=== PATIENT | female | born 1955 | race Caucasian/White ===

== ENCOUNTER 2019-10-03 14:25 | Outpatient (CLI) | payer MEDICARE, SELFPAY ==
--- NOTE | ~2019-10-03 | XR_ITS ---
EXAMINATION: XR chest 2V EXAM DATE: 10/03/2019 14:49 INDICATION: Shortness of breath, URI, cough. TECHNIQUE: Frontal and lateral projections of the chest obtained and reviewed. Comparison is made to prior examination from 04/20/2019. FINDINGS: There is right upper lobe nodule. The lungs are otherwise clear. There are no pleural eff usions. The cardiomediastinal silhouette is within normal limits. There is no pneumothorax suspecte d. The bones and soft tissues are unremarkable. IMPRESSION: No acute cardiopulmonary findings. Reviewed, dictated and finalized at location B. OR PRODUCT DEVELOPMENT SCIENTIST
[2019-10-03 14:41] LABS: Hematocrit 40.1 % (35.0-49.0); Hemoglobin 12.7 g/dL (12.0-15.0); Mean Corpuscular HGB Conc 31.7 g/dL (32.0-36.0); Mean Corpuscular Hemoglobin 27.6 pg (27.0-31.0); Mean Corpuscular Volume 87.2 fL (78.0-102.0); Mean Platelet Volume 9.4 fl (9.2-11.8); Platelet Count Result 410 K/mm3 (150-420); Red Cell Distribution Width 15.2 % (11.6-14.4); White Blood Count 13.6 K/mm3 (4.8-10.8)
[2019-10-03 15:23] LABS: Anion Gap 13.9 mmol/L (7-16); Blood Urea Nitrogen 17 mg/dL (7-18); Calcium 9.3 mg/dL (8.5-10.1); Carbon Dioxide 29 mmol/L (21-32); Chloride 101 mmol/L (98-108); Estimated Glomerular Filt Rate 54; Glucose 110 mg/dL (70-99); Osmolality Calculated 290 mOsm/kg (285-295); Potassium 4.9 mmol/L (3.5-5.1); Sodium 139 mmol/L (136-145)
== END 2019-10-03 14:26 | disposition home or self-care (01) ==
PROVIDERS: PCP Family Medicine; Visit Provider Family Medicine
DX: J06.9 Acute upper respiratory infection, unspecified (principal)
CPT/HCPCS: 36415; 71046; 80048; 85027

== ENCOUNTER 2020-06-13 09:30 | Outpatient (RCR) | payer MEDICARE, SELFPAY ==
[2020-06-13 09:42] LABS: Basophils Absolute Auto 0.06 K/mm3 (0.00-0.10); Basophils Percent Auto 0.9 % (0.0-1.0); Eosinophils Absolute Auto 0.18 K/mm3 (0.02-0.50); Eosinophils Percent Auto 2.6 % (1.0-6.0); Hematocrit 40.9 % (35.0-49.0); Hemoglobin 12.7 g/dL (12.0-15.0); Immature Granulocyte Absolute 0.02 K/mm3 (0.00-0.00); Immature Granulocyte Percent A 0.3 % (0.0-0.0); Lymphocytes Absolute Auto 1.78 K/mm3 (1.10-4.50); Lymphocytes Percent Auto 25.6 % (18.0-42.0); Mean Corpuscular HGB Conc 31.1 g/dL (32.0-36.0); Mean Corpuscular Hemoglobin 28.1 pg (27.0-31.0); Mean Corpuscular Volume 90.5 fL (78.0-102.0); Mean Platelet Volume 10.3 fl (9.2-11.8); Monocytes Percent Auto 7.2 % (2.0-11.0); Neutrophils Absolute Auto 4.4 K/mm3 (1.7-7.2); Neutrophils Percent Auto 63.4 % (50.0-70.0); Platelet Count Result 315 K/mm3 (150-420); Red Blood Count 4.52 M/mm3 (4.20-5.40); Red Cell Distribution Width 15.7 % (11.6-14.4); White Blood Count 6.9 K/mm3 (4.8-10.8)
== END 2020-09-11 23:59 | disposition home or self-care (01) ==
LOC: CHSLAB 09:30
PROVIDERS: PCP Family Medicine
DX: F25.9 Schizoaffective disorder, unspecified (principal); F41.9 Anxiety disorder, unspecified; Z79.899 Other long term (current) drug therapy
CPT/HCPCS: 36415; 85025

== ENCOUNTER 2020-07-11 10:38 | Outpatient (CLI) | payer MEDICARE, SELFPAY ==
[2020-07-11 10:56] LABS: Basophils Absolute Auto 0.05 K/mm3 (0.00-0.10); Basophils Percent Auto 0.6 % (0.0-1.0); Eosinophils Absolute Auto 0.17 K/mm3 (0.02-0.50); Eosinophils Percent Auto 2.1 % (1.0-6.0); Hemoglobin 12.5 g/dL (12.0-15.0); Immature Granulocyte Absolute 0.02 K/mm3 (0.00-0.00); Immature Granulocyte Percent A 0.3 % (0.0-0.0); Lymphocytes Absolute Auto 1.91 K/mm3 (1.10-4.50); Lymphocytes Percent Auto 24.1 % (18.0-42.0); Mean Corpuscular HGB Conc 31.3 g/dL (32.0-36.0); Mean Corpuscular Hemoglobin 28.2 pg (27.0-31.0); Mean Corpuscular Volume 90.1 fL (78.0-102.0); Mean Platelet Volume 10.6 fl (9.2-11.8); Monocytes Absolute Auto 0.53 K/mm3 (0.10-0.90); Monocytes Percent Auto 6.7 % (2.0-11.0); Neutrophils Absolute Auto 5.3 K/mm3 (1.7-7.2); Neutrophils Percent Auto 66.2 % (50.0-70.0); Platelet Count Result 307 K/mm3 (150-420); Red Blood Count 4.44 M/mm3 (4.20-5.40); Red Cell Distribution Width 15.4 % (11.6-14.4); White Blood Count 7.9 K/mm3 (4.8-10.8)
== END 2020-07-11 10:39 | disposition home or self-care (01) ==
LOC: CHSLAB 10:41
PROVIDERS: PCP Family Medicine
DX: F25.9 Schizoaffective disorder, unspecified (principal); F41.9 Anxiety disorder, unspecified; Z79.899 Other long term (current) drug therapy
CPT/HCPCS: 36415; 85025

== ENCOUNTER 2021-03-11 07:48 | Outpatient (CLI) | payer MEDICARE, SELFPAY ==
[2021-03-11 08:00] LABS: Basophils Absolute Auto 0.05 K/mm3 (0.00-0.10); Basophils Percent Auto 0.7 % (0.0-1.0); Eosinophils Absolute Auto 0.13 K/mm3 (0.02-0.50); Eosinophils Percent Auto 1.9 % (1.0-6.0); Hematocrit 46.4 % (35.0-49.0); Hemoglobin 14.3 g/dL (12.0-15.0); Immature Granulocyte Absolute 0.04 K/mm3 (0.00-0.00); Immature Granulocyte Percent A 0.6 % (0.0-0.0); Lymphocytes Absolute Auto 2.27 K/mm3 (1.10-4.50); Lymphocytes Percent Auto 33.1 % (18.0-42.0); Mean Corpuscular HGB Conc 30.8 g/dL (32.0-36.0); Mean Corpuscular Hemoglobin 28.3 pg (27.0-31.0); Mean Corpuscular Volume 91.9 fL (78.0-102.0); Mean Platelet Volume 10.5 fl (9.2-11.8); Monocytes Absolute Auto 0.36 K/mm3 (0.10-0.90); Monocytes Percent Auto 5.3 % (2.0-11.0); Neutrophils Percent Auto 58.4 % (50.0-70.0); Platelet Count Result 327 K/mm3 (150-420); Red Blood Count 5.05 M/mm3 (4.20-5.40); Red Cell Distribution Width 15.5 % (11.6-14.4); White Blood Count 6.9 K/mm3 (4.8-10.8)
== END 2021-03-11 07:49 | disposition home or self-care (01) ==
PROVIDERS: PCP Family Medicine
DX: F25.9 Schizoaffective disorder, unspecified (principal); F41.9 Anxiety disorder, unspecified; Z79.899 Other long term (current) drug therapy
CPT/HCPCS: 36415; 85025

== ENCOUNTER 2021-04-09 09:35 | Outpatient (CLI) | payer MEDICARE, SELFPAY ==
[2021-04-09 09:52] LABS: Basophils Absolute Auto 0.06 K/mm3 (0.00-0.10); Basophils Percent Auto 0.7 % (0.0-1.0); Eosinophils Absolute Auto 0.15 K/mm3 (0.02-0.50); Eosinophils Percent Auto 1.8 % (1.0-6.0); Hematocrit 43.2 % (35.0-49.0); Hemoglobin 13.6 g/dL (12.0-15.0); Immature Granulocyte Absolute 0.03 K/mm3 (0.00-0.00); Immature Granulocyte Percent A 0.4 % (0.0-0.0); Lymphocytes Absolute Auto 2.12 K/mm3 (1.10-4.50); Lymphocytes Percent Auto 25.8 % (18.0-42.0); Mean Corpuscular HGB Conc 31.5 g/dL (32.0-36.0); Mean Corpuscular Hemoglobin 28.9 pg (27.0-31.0); Mean Corpuscular Volume 91.9 fL (78.0-102.0); Mean Platelet Volume 10.3 fl (9.2-11.8); Monocytes Absolute Auto 0.54 K/mm3 (0.10-0.90); Monocytes Percent Auto 6.6 % (2.0-11.0); Neutrophils Absolute Auto 5.3 K/mm3 (1.7-7.2); Neutrophils Percent Auto 64.7 % (50.0-70.0); Platelet Count Result 279 K/mm3 (150-420); Red Cell Distribution Width 15.7 % (11.6-14.4); White Blood Count 8.2 K/mm3 (4.8-10.8)
== END 2021-04-09 09:36 | disposition home or self-care (01) ==
LOC: CHSLAB 09:38
PROVIDERS: PCP Family Medicine
DX: F25.9 Schizoaffective disorder, unspecified (principal); Z79.899 Other long term (current) drug therapy
CPT/HCPCS: 36415; 85025

== ENCOUNTER 2021-05-07 10:02 | Outpatient (RCR) | payer MEDICARE, SELFPAY ==
[2021-02-12 08:23] LABS: Basophils Absolute Auto 0.04 K/mm3 (0.00-0.10); Basophils Percent Auto 0.7 % (0.0-1.0); Eosinophils Absolute Auto 0.12 K/mm3 (0.02-0.50); Hematocrit 44.4 % (35.0-49.0); Hemoglobin 13.9 g/dL (12.0-15.0); Immature Granulocyte Absolute 0.01 K/mm3 (0.00-0.00); Immature Granulocyte Percent A 0.2 % (0.0-0.0); Lymphocytes Absolute Auto 1.98 K/mm3 (1.10-4.50); Lymphocytes Percent Auto 33.6 % (18.0-42.0); Mean Corpuscular HGB Conc 31.3 g/dL (32.0-36.0); Mean Corpuscular Hemoglobin 28.3 pg (27.0-31.0); Mean Corpuscular Volume 90.2 fL (78.0-102.0); Mean Platelet Volume 11.1 fl (9.2-11.8); Monocytes Absolute Auto 0.31 K/mm3 (0.10-0.90); Monocytes Percent Auto 5.3 % (2.0-11.0); Neutrophils Absolute Auto 3.4 K/mm3 (1.7-7.2); Neutrophils Percent Auto 58.2 % (50.0-70.0); Platelet Count Result 309 K/mm3 (150-420); Red Blood Count 4.92 M/mm3 (4.20-5.40); Red Cell Distribution Width 15.7 % (11.6-14.4); White Blood Count 5.9 K/mm3 (4.8-10.8)
[2021-05-07 10:14] LABS: Basophils Absolute Auto 0.05 K/mm3 (0.00-0.10); Basophils Percent Auto 0.6 % (0.0-1.0); Eosinophils Absolute Auto 0.14 K/mm3 (0.02-0.50); Eosinophils Percent Auto 1.7 % (1.0-6.0); Hematocrit 44.4 % (35.0-49.0); Hemoglobin 14.1 g/dL (12.0-15.0); Immature Granulocyte Absolute 0.02 K/mm3 (0.00-0.00); Immature Granulocyte Percent A 0.2 % (0.0-0.0); Lymphocytes Absolute Auto 1.87 K/mm3 (1.10-4.50); Lymphocytes Percent Auto 23.1 % (18.0-42.0); Mean Corpuscular HGB Conc 31.8 g/dL (32.0-36.0); Mean Corpuscular Hemoglobin 29.1 pg (27.0-31.0); Mean Corpuscular Volume 91.7 fL (78.0-102.0); Mean Platelet Volume 10.8 fl (9.2-11.8); Monocytes Absolute Auto 0.43 K/mm3 (0.10-0.90); Monocytes Percent Auto 5.3 % (2.0-11.0); Neutrophils Absolute Auto 5.6 K/mm3 (1.7-7.2); Neutrophils Percent Auto 69.1 % (50.0-70.0); Platelet Count Result 279 K/mm3 (150-420); Red Blood Count 4.84 M/mm3 (4.20-5.40); Red Cell Distribution Width 15.7 % (11.6-14.4); White Blood Count 8.1 K/mm3 (4.8-10.8)
== END 2021-05-13 23:59 | disposition home or self-care (01) ==
LOC: CHSLAB 10:02
PROVIDERS: PCP Family Medicine
DX: F25.9 Schizoaffective disorder, unspecified (principal); F41.9 Anxiety disorder, unspecified; Z79.899 Other long term (current) drug therapy
CPT/HCPCS: 36415; 85025

== ENCOUNTER 2021-08-25 10:02 | Outpatient (RCR) | payer MEDICARE, SELFPAY ==
[2021-06-04 07:45] LABS: Basophils Absolute Auto 0.04 K/mm3 (0.00-0.10); Basophils Percent Auto 0.7 % (0.0-1.0); Eosinophils Absolute Auto 0.16 K/mm3 (0.02-0.50); Eosinophils Percent Auto 2.7 % (1.0-6.0); Hematocrit 44.5 % (35.0-49.0); Hemoglobin 14.1 g/dL (12.0-15.0); Immature Granulocyte Absolute 0.02 K/mm3 (0.00-0.00); Immature Granulocyte Percent A 0.3 % (0.0-0.0); Lymphocytes Percent Auto 37.2 % (18.0-42.0); Mean Corpuscular HGB Conc 31.7 g/dL (32.0-36.0); Mean Corpuscular Hemoglobin 29.2 pg (27.0-31.0); Mean Corpuscular Volume 92.1 fL (78.0-102.0); Mean Platelet Volume 10.8 fl (9.2-11.8); Monocytes Absolute Auto 0.39 K/mm3 (0.10-0.90); Monocytes Percent Auto 6.6 % (2.0-11.0); Neutrophils Absolute Auto 3.1 K/mm3 (1.7-7.2); Neutrophils Percent Auto 52.5 % (50.0-70.0); Platelet Count Result 279 K/mm3 (150-420); Red Blood Count 4.83 M/mm3 (4.20-5.40); Red Cell Distribution Width 15.5 % (11.6-14.4); White Blood Count 5.9 K/mm3 (4.8-10.8)
[2021-06-30 07:45] LABS: Basophils Absolute Auto 0.06 K/mm3 (0.00-0.10); Eosinophils Absolute Auto 0.15 K/mm3 (0.02-0.50); Eosinophils Percent Auto 2.5 % (1.0-6.0); Hematocrit 43.3 % (35.0-49.0); Hemoglobin 13.7 g/dL (12.0-15.0); Immature Granulocyte Absolute 0.01 K/mm3 (0.00-0.00); Immature Granulocyte Percent A 0.2 % (0.0-0.0); Lymphocytes Absolute Auto 2.38 K/mm3 (1.10-4.50); Lymphocytes Percent Auto 39.1 % (18.0-42.0); Mean Corpuscular HGB Conc 31.6 g/dL (32.0-36.0); Mean Corpuscular Volume 91.5 fL (78.0-102.0); Mean Platelet Volume 10.8 fl (9.2-11.8); Monocytes Absolute Auto 0.47 K/mm3 (0.10-0.90); Monocytes Percent Auto 7.7 % (2.0-11.0); Neutrophils Percent Auto 49.5 % (50.0-70.0); Platelet Count Result 287 K/mm3 (150-420); Red Blood Count 4.73 M/mm3 (4.20-5.40); Red Cell Distribution Width 15.6 % (11.6-14.4); White Blood Count 6.1 K/mm3 (4.8-10.8)
[2021-07-29 10:13] LABS: Basophils Absolute Auto 0.05 K/mm3 (0.00-0.10); Basophils Percent Auto 0.7 % (0.0-1.0); Eosinophils Absolute Auto 0.11 K/mm3 (0.02-0.50); Eosinophils Percent Auto 1.4 % (1.0-6.0); Hematocrit 44.2 % (35.0-49.0); Hemoglobin 14.1 g/dL (12.0-15.0); Immature Granulocyte Absolute 0.02 K/mm3 (0.00-0.00); Immature Granulocyte Percent A 0.3 % (0.0-0.0); Lymphocytes Percent Auto 23.4 % (18.0-42.0); Mean Corpuscular HGB Conc 31.9 g/dL (32.0-36.0); Mean Corpuscular Hemoglobin 29.4 pg (27.0-31.0); Mean Corpuscular Volume 92.1 fL (78.0-102.0); Mean Platelet Volume 10.6 fl (9.2-11.8); Monocytes Absolute Auto 0.43 K/mm3 (0.10-0.90); Monocytes Percent Auto 5.6 % (2.0-11.0); Neutrophils Absolute Auto 5.3 K/mm3 (1.7-7.2); Neutrophils Percent Auto 68.6 % (50.0-70.0); Platelet Count Result 310 K/mm3 (150-420); Red Cell Distribution Width 14.9 % (11.6-14.4); White Blood Count 7.7 K/mm3 (4.8-10.8)
[2021-08-25 10:19] LABS: Basophils Absolute Auto 0.06 K/mm3 (0.00-0.10); Basophils Percent Auto 0.7 % (0.0-1.0); Eosinophils Percent Auto 1.2 % (1.0-6.0); Hematocrit 44.6 % (35.0-49.0); Hemoglobin 13.9 g/dL (12.0-15.0); Immature Granulocyte Absolute 0.02 K/mm3 (0.00-0.00); Immature Granulocyte Percent A 0.2 % (0.0-0.0); Lymphocytes Absolute Auto 1.95 K/mm3 (1.10-4.50); Lymphocytes Percent Auto 22.9 % (18.0-42.0); Mean Corpuscular HGB Conc 31.2 g/dL (32.0-36.0); Mean Corpuscular Volume 92.9 fL (78.0-102.0); Mean Platelet Volume 10.7 fl (9.2-11.8); Monocytes Absolute Auto 0.43 K/mm3 (0.10-0.90); Platelet Count Result 291 K/mm3 (150-420); Red Cell Distribution Width 15.4 % (11.6-14.4); White Blood Count 8.5 K/mm3 (4.8-10.8)
== END 2021-09-02 23:59 | disposition home or self-care (01) ==
LOC: CHSLAB 10:02
PROVIDERS: PCP Family Medicine
DX: F25.9 Schizoaffective disorder, unspecified (principal); F41.9 Anxiety disorder, unspecified; Z79.899 Other long term (current) drug therapy
CPT/HCPCS: 36415; 85025

== ENCOUNTER 2021-12-16 07:19 | Outpatient (RCR) | payer MEDICARE, SELFPAY ==
[2021-09-21 14:48] LABS: Basophils Absolute Auto 0.05 K/mm3 (0.00-0.10); Basophils Percent Auto 0.6 % (0.0-1.0); Eosinophils Absolute Auto 0.12 K/mm3 (0.02-0.50); Eosinophils Percent Auto 1.5 % (1.0-6.0); Hematocrit 44.4 % (35.0-49.0); Hemoglobin 13.8 g/dL (12.0-15.0); Immature Granulocyte Absolute 0.04 K/mm3 (0.00-0.00); Immature Granulocyte Percent A 0.5 % (0.0-0.0); Lymphocytes Absolute Auto 2.25 K/mm3 (1.10-4.50); Lymphocytes Percent Auto 27.7 % (18.0-42.0); Mean Corpuscular HGB Conc 31.1 g/dL (32.0-36.0); Mean Corpuscular Hemoglobin 29.1 pg (27.0-31.0); Mean Corpuscular Volume 93.5 fL (78.0-102.0); Mean Platelet Volume 10.5 fl (9.2-11.8); Monocytes Absolute Auto 0.51 K/mm3 (0.10-0.90); Monocytes Percent Auto 6.3 % (2.0-11.0); Neutrophils Absolute Auto 5.2 K/mm3 (1.7-7.2); Neutrophils Percent Auto 63.4 % (50.0-70.0); Platelet Count Result 282 K/mm3 (150-420); Red Blood Count 4.75 M/mm3 (4.20-5.40); Red Cell Distribution Width 15.5 % (11.6-14.4); White Blood Count 8.1 K/mm3 (4.8-10.8)
[2021-10-20 08:09] LABS: Basophils Absolute Auto 0.05 K/mm3 (0.00-0.10); Basophils Percent Auto 0.7 % (0.0-1.0); Eosinophils Percent Auto 1.4 % (1.0-6.0); Hematocrit 44.8 % (35.0-49.0); Hemoglobin 13.7 g/dL (12.0-15.0); Immature Granulocyte Absolute 0.02 K/mm3 (0.00-0.00); Immature Granulocyte Percent A 0.3 % (0.0-0.0); Lymphocytes Absolute Auto 1.69 K/mm3 (1.10-4.50); Lymphocytes Percent Auto 23.4 % (18.0-42.0); Mean Corpuscular HGB Conc 30.6 g/dL (32.0-36.0); Mean Corpuscular Hemoglobin 28.8 pg (27.0-31.0); Mean Corpuscular Volume 94.3 fL (78.0-102.0); Mean Platelet Volume 10.5 fl (9.2-11.8); Monocytes Absolute Auto 0.34 K/mm3 (0.10-0.90); Monocytes Percent Auto 4.7 % (2.0-11.0); Neutrophils Percent Auto 69.5 % (50.0-70.0); Platelet Count Result 280 K/mm3 (150-420); Red Blood Count 4.75 M/mm3 (4.20-5.40); Red Cell Distribution Width 15.3 % (11.6-14.4); White Blood Count 7.2 K/mm3 (4.8-10.8)
[2021-11-18 07:51] LABS: Basophils Absolute Auto 0.05 K/mm3 (0.00-0.10); Basophils Percent Auto 0.8 % (0.0-1.0); Eosinophils Absolute Auto 0.15 K/mm3 (0.02-0.50); Eosinophils Percent Auto 2.3 % (1.0-6.0); Hematocrit 44.7 % (35.0-49.0); Hemoglobin 14.1 g/dL (12.0-15.0); Immature Granulocyte Absolute 0.02 K/mm3 (0.00-0.00); Immature Granulocyte Percent A 0.3 % (0.0-0.0); Lymphocytes Absolute Auto 2.29 K/mm3 (1.10-4.50); Lymphocytes Percent Auto 35.4 % (18.0-42.0); Mean Corpuscular HGB Conc 31.5 g/dL (32.0-36.0); Mean Corpuscular Hemoglobin 29.4 pg (27.0-31.0); Mean Corpuscular Volume 93.1 fL (78.0-102.0); Mean Platelet Volume 10.2 fl (9.2-11.8); Monocytes Absolute Auto 0.36 K/mm3 (0.10-0.90); Monocytes Percent Auto 5.6 % (2.0-11.0); Neutrophils Absolute Auto 3.6 K/mm3 (1.7-7.2); Neutrophils Percent Auto 55.6 % (50.0-70.0); Platelet Count Result 307 K/mm3 (150-420); Red Cell Distribution Width 15.3 % (11.6-14.4); White Blood Count 6.5 K/mm3 (4.8-10.8)
[2021-12-16 07:44] LABS: Basophils Absolute Auto 0.06 K/mm3 (0.00-0.10); Basophils Percent Auto 0.9 % (0.0-1.0); Eosinophils Absolute Auto 0.13 K/mm3 (0.02-0.50); Hematocrit 45.1 % (35.0-42.0); Hemoglobin 13.8 g/dL (11.7-13.8); Immature Granulocyte Absolute 0.02 K/mm3 (0.00-0.00); Immature Granulocyte Percent A 0.3 % (0.0-0.0); Lymphocytes Absolute Auto 2.08 K/mm3 (1.10-4.50); Lymphocytes Percent Auto 32.1 % (18.0-42.0); Mean Corpuscular HGB Conc 30.6 g/dL (32.0-36.0); Mean Corpuscular Hemoglobin 28.5 pg (27.0-31.0); Mean Corpuscular Volume 93.2 fL (78.0-102.0); Mean Platelet Volume 10.4 fl (9.2-11.8); Monocytes Absolute Auto 0.36 K/mm3 (0.10-0.90); Monocytes Percent Auto 5.6 % (2.0-11.0); Neutrophils Absolute Auto 3.8 K/mm3 (1.7-7.2); Neutrophils Percent Auto 59.1 % (50.0-70.0); Platelet Count Result 314 K/mm3 (150-420); Red Blood Count 4.84 M/mm3 (4.20-5.40); Red Cell Distribution Width 15.5 % (11.6-14.4); White Blood Count 6.5 K/mm3 (4.8-10.8)
== END 2021-12-20 23:59 | disposition home or self-care (01) ==
LOC: CHSLAB 07:19
PROVIDERS: PCP Family Medicine
DX: F25.9 Schizoaffective disorder, unspecified (principal); F41.9 Anxiety disorder, unspecified; Z79.899 Other long term (current) drug therapy
CPT/HCPCS: 36415; 85025

== ENCOUNTER 2022-03-17 06:59 | Outpatient (RCR) | payer MEDICARE, SELFPAY ==
[2022-01-13 07:38] LABS: Basophils Absolute Auto 0.06 K/mm3 (0.00-0.10); Basophils Percent Auto 0.8 % (0.0-1.0); Eosinophils Percent Auto 2.8 % (1.0-6.0); Hemoglobin 14.1 g/dL (11.7-13.8); Immature Granulocyte Absolute 0.01 K/mm3 (0.00-0.00); Immature Granulocyte Percent A 0.1 % (0.0-0.0); Lymphocytes Absolute Auto 2.35 K/mm3 (1.10-4.50); Lymphocytes Percent Auto 32.5 % (18.0-42.0); Mean Corpuscular HGB Conc 31.3 g/dL (32.0-36.0); Mean Corpuscular Volume 92.6 fL (78.0-102.0); Mean Platelet Volume 10.5 fl (9.2-11.8); Monocytes Absolute Auto 0.44 K/mm3 (0.10-0.90); Monocytes Percent Auto 6.1 % (2.0-11.0); Neutrophils Absolute Auto 4.2 K/mm3 (1.7-7.2); Neutrophils Percent Auto 57.7 % (50.0-70.0); Platelet Count Result 344 K/mm3 (150-420); Red Blood Count 4.86 M/mm3 (4.20-5.40); Red Cell Distribution Width 15.2 % (11.6-14.4); White Blood Count 7.2 K/mm3 (4.8-10.8)
[2022-02-10 07:31] LABS: Basophils Absolute Auto 0.04 K/mm3 (0.00-0.10); Basophils Percent Auto 0.6 % (0.0-1.0); Eosinophils Absolute Auto 0.14 K/mm3 (0.02-0.50); Eosinophils Percent Auto 2.1 % (1.0-6.0); Hematocrit 42.1 % (35.0-42.0); Hemoglobin 13.1 g/dL (11.7-13.8); Immature Granulocyte Absolute 0.01 K/mm3 (0.00-0.00); Immature Granulocyte Percent A 0.2 % (0.0-0.0); Lymphocytes Absolute Auto 2.07 K/mm3 (1.10-4.50); Lymphocytes Percent Auto 31.7 % (18.0-42.0); Mean Corpuscular HGB Conc 31.1 g/dL (32.0-36.0); Mean Corpuscular Volume 93.3 fL (78.0-102.0); Mean Platelet Volume 10.5 fl (9.2-11.8); Monocytes Absolute Auto 0.42 K/mm3 (0.10-0.90); Monocytes Percent Auto 6.4 % (2.0-11.0); Neutrophils Absolute Auto 3.9 K/mm3 (1.7-7.2); Platelet Count Result 302 K/mm3 (150-420); Red Blood Count 4.51 M/mm3 (4.20-5.40); Red Cell Distribution Width 15.5 % (11.6-14.4); White Blood Count 6.5 K/mm3 (4.8-10.8)
[2022-03-17 07:19] LABS: Basophils Absolute Auto 0.06 K/mm3 (0.00-0.10); Basophils Percent Auto 0.9 % (0.0-1.0); Eosinophils Absolute Auto 0.16 K/mm3 (0.02-0.50); Eosinophils Percent Auto 2.4 % (1.0-6.0); Hematocrit 42.4 % (35.0-42.0); Hemoglobin 13.3 g/dL (11.7-13.8); Immature Granulocyte Absolute 0.02 K/mm3 (0.00-0.00); Immature Granulocyte Percent A 0.3 % (0.0-0.0); Lymphocytes Absolute Auto 2.44 K/mm3 (1.10-4.50); Lymphocytes Percent Auto 36.5 % (18.0-42.0); Mean Corpuscular HGB Conc 31.4 g/dL (32.0-36.0); Mean Corpuscular Hemoglobin 29.2 pg (27.0-31.0); Mean Corpuscular Volume 93.2 fL (78.0-102.0); Mean Platelet Volume 10.3 fl (9.2-11.8); Monocytes Absolute Auto 0.45 K/mm3 (0.10-0.90); Monocytes Percent Auto 6.7 % (2.0-11.0); Neutrophils Absolute Auto 3.6 K/mm3 (1.7-7.2); Neutrophils Percent Auto 53.2 % (50.0-70.0); Platelet Count Result 279 K/mm3 (150-420); Red Blood Count 4.55 M/mm3 (4.20-5.40); Red Cell Distribution Width 15.5 % (11.6-14.4); White Blood Count 6.7 K/mm3 (4.8-10.8)
== END 2022-04-13 23:59 | disposition home or self-care (01) ==
LOC: CHSLAB 06:59
PROVIDERS: PCP Family Medicine
DX: F25.9 Schizoaffective disorder, unspecified (principal); F41.9 Anxiety disorder, unspecified; Z79.899 Other long term (current) drug therapy
CPT/HCPCS: 36415; 85025

== ENCOUNTER 2022-05-12 07:05 | Outpatient (CLI) | payer MEDICARE, SELFPAY ==
[2022-05-12 07:43] LABS: Basophils Absolute Auto 0.06 K/mm3 (0.00-0.10); Basophils Percent Auto 0.9 % (0.0-1.0); Eosinophils Absolute Auto 0.11 K/mm3 (0.02-0.50); Eosinophils Percent Auto 1.6 % (1.0-6.0); Hematocrit 42.8 % (35.0-42.0); Hemoglobin 13.1 g/dL (11.7-13.8); Immature Granulocyte Absolute 0.02 K/mm3 (0.00-0.00); Immature Granulocyte Percent A 0.3 % (0.0-0.0); Lymphocytes Absolute Auto 1.96 K/mm3 (1.10-4.50); Mean Corpuscular HGB Conc 30.6 g/dL (32.0-36.0); Mean Corpuscular Hemoglobin 28.2 pg (27.0-31.0); Mean Corpuscular Volume 92.2 fL (78.0-102.0); Mean Platelet Volume 10.5 fl (9.2-11.8); Monocytes Absolute Auto 0.49 K/mm3 (0.10-0.90); Monocytes Percent Auto 7.3 % (2.0-11.0); Neutrophils Absolute Auto 4.1 K/mm3 (1.7-7.2); Neutrophils Percent Auto 60.9 % (50.0-70.0); Platelet Count Result 326 K/mm3 (150-420); Red Blood Count 4.64 M/mm3 (4.20-5.40); White Blood Count 6.8 K/mm3 (4.8-10.8)
== END 2022-05-12 07:06 | disposition home or self-care (01) ==
LOC: CHSLAB 07:09
PROVIDERS: PCP Family Medicine
DX: F25.9 Schizoaffective disorder, unspecified (principal); F41.9 Anxiety disorder, unspecified; Z79.899 Other long term (current) drug therapy
CPT/HCPCS: 36415; 85025

== ENCOUNTER 2022-05-12 07:12 | Outpatient (RCR) | payer MEDICARE, SELFPAY ==
[2022-04-14 08:47] LABS: Basophils Absolute Auto 0.03 K/mm3 (0.00-0.10); Basophils Percent Auto 0.6 % (0.0-1.0); Eosinophils Absolute Auto 0.03 K/mm3 (0.02-0.50); Eosinophils Percent Auto 0.6 % (1.0-6.0); Hematocrit 40.8 % (35.0-42.0); Immature Granulocyte Absolute 0.01 K/mm3 (0.00-0.00); Immature Granulocyte Percent A 0.2 % (0.0-0.0); Lymphocytes Absolute Auto 1.16 K/mm3 (1.10-4.50); Lymphocytes Percent Auto 23.2 % (18.0-42.0); Mean Corpuscular HGB Conc 31.9 g/dL (32.0-36.0); Mean Corpuscular Hemoglobin 29.2 pg (27.0-31.0); Mean Corpuscular Volume 91.7 fL (78.0-102.0); Mean Platelet Volume 10.6 fl (9.2-11.8); Monocytes Absolute Auto 0.39 K/mm3 (0.10-0.90); Monocytes Percent Auto 7.8 % (2.0-11.0); Neutrophils Absolute Auto 3.4 K/mm3 (1.7-7.2); Neutrophils Percent Auto 67.6 % (50.0-70.0); Platelet Count Result 240 K/mm3 (150-420); Red Blood Count 4.45 M/mm3 (4.20-5.40)
== END 2022-05-12 07:36 | disposition other institution (70) ==
LOC: CHSLAB 07:12
PROVIDERS: PCP Family Medicine
DX: F25.9 Schizoaffective disorder, unspecified (principal); F41.9 Anxiety disorder, unspecified; Z79.899 Other long term (current) drug therapy
CPT/HCPCS: 36415; 85025

== ENCOUNTER 2022-08-30 08:32 | Outpatient (CLI) | payer MEDICARE, SELFPAY ==
--- NOTE | ~2022-08-30 | DEXA_ITS ---
Bone Density Report Name: DAE BERNSTEIN Age: 66 Sex: Female Ethnicity: White Date of : 1955 Indication: postmenopausal; screening for osteoporosis; height loss; inflammatory bowel disease; Referring Provider: Sumit Tocsano Study: Bone densitometry was performed. Exam Date: August 30, 2022 Accession number: [id number] Bone Density: Region BMD T-score Z-score Classification AP Spine(L2, L3, L4) 0.956 -1.1 0.8 Osteopenia Femoral Neck (Left) 0.685 -1.5 0.1 Osteopenia Total Hip (Left) 0.851 -0.7 0.5 Normal Femoral Neck (Right) 0.699 -1.4 0.2 Osteopenia Total Hip (Right) 0.860 -0.7 0.6 Normal Femoral Neck Mean 0.692 -1.4 0.1 Osteopenia Total Hip Mean 0.856 -0.7 0.6 Normal World Health Organization criteria for BMD impression classify patients as: Normal (T-score at or above -1.0), Osteopenia (T-score between -1.0 and -2.5), or Osteoporosis (T-score at or below -2.5). 10-year Fracture Risk(1): Major Osteoporotic Fracture 7.2% Hip Fracture 0.7% Reported Risk Factors: [place] (), Neck BMD=0.685, BMI=48.8 Input outside FRAX(R) limits. Adjusted to:Yloyia=266 kg (1) FRAX(R) Version 3.08. Fracture probability calculated for an untreated patient. Fracture probability may be lower if the patient has received treatment. Clinical Information Provided by Patient: Has the following medical conditions: Inflammatory bowel diseases Patient maximum height was 64 Menopause Age: 51 No regular weight bearing exercise Drinks caffeinated beverages Onset of menses at age 13 Number of children 0 Impression: The patient has low bone mass, based on the Left Femoral Neck T-score. Discussion: BONE DENSITY IS LOW AT ONE OR MORE SKELETAL SITES. This patient's lowest T-score is low at one or more skeletal sites. It meets the World Health Organization's (WHO) criteria for ?low bone mass? (T-score between -1.0 and -2.5). The patient's 10-year risk of fracture as calculated by FRAX is less than the threshold where pharmacological therapy is recommended by the National Osteoporosis Foundation (NOF). However, all treatment decisions require clinical judgment and consideration of individual patient factors, including patient preferences, comorbidities, previous drug use, risk factors not captured in the FRAX model (e.g., frailty, falls, vitamin D deficiency, increased bone turnover, interval significant decline in bone density) and possible under or overestimation of fracture risk by FRAX. The patient should follow a healthful lifestyle (good nutrition with adequate calcium and vitamin D, and appropriate weight-bearing exercise). Follow-Up: Consider repeating this study in 2 to 3 years to reassess this patient's status, or sooner if there is some new clinical indication.
--- NOTE | ~2022-08-30 | MM_ITS ---
EXAMINATION: MM screening michelle BI w job HISTORY: Screening mammogram TECHNIQUE: Craniocaudal and mediolateral oblique 3-D tomosynthesis images were obtained and synthetic 2-D images were generated. CAD analysis was submitted and interpreted. COMPARISON: 03/03/2018 bilateral diagnostic mammogram and complete bilateral breast ultrasound 02/09/2018 bilateral screening mammogram BREAST PARENCHYMAL COMPOSITION: There are scattered areas of fibroglandular density. FINDINGS: Stable nodular appearing fibroglandular stroma. There is no evidence of suspicious mass, ca lcification, or architectural distortion to suggest malignancy in either breast. There has been no victoria spicious interval change. IMPRESSION: 1. No mammographic evidence of malignancy. 2. Recommend routine screening mammography in one year. BI-RADS Category 2: Benign finding(s). Reviewed, dictated and finalized at location A. LINE ENGINE INSPECTOR
== END 2022-08-30 08:33 | disposition home or self-care (01) ==
LOC: CHSIMG 08:33
PROVIDERS: PCP Family Medicine; Visit Provider Family Medicine
DX: Z12.31 Encounter for screening mammogram for malignant neoplasm of breast (principal); Z78.0 Asymptomatic menopausal state; M85.89 Other specified disorders of bone density and structure, multiple sites
CPT/HCPCS: 77063; 77067; 77080

== ENCOUNTER 2022-09-02 06:56 | Outpatient (RCR) | payer MEDICARE, SELFPAY ==
[2022-06-09 13:39] LABS: Basophils Absolute Auto 0.05 K/mm3 (0.00-0.10); Basophils Percent Auto 0.8 % (0.0-1.0); Eosinophils Absolute Auto 0.16 K/mm3 (0.02-0.50); Eosinophils Percent Auto 2.5 % (1.0-6.0); Hematocrit 42.9 % (35.0-42.0); Hemoglobin 13.1 g/dL (11.7-13.8); Immature Granulocyte Absolute 0.01 K/mm3 (0.00-0.00); Immature Granulocyte Percent A 0.2 % (0.0-0.0); Lymphocytes Absolute Auto 1.98 K/mm3 (1.10-4.50); Lymphocytes Percent Auto 30.8 % (18.0-42.0); Mean Corpuscular HGB Conc 30.5 g/dL (32.0-36.0); Mean Corpuscular Hemoglobin 28.5 pg (27.0-31.0); Mean Corpuscular Volume 93.5 fL (78.0-102.0); Mean Platelet Volume 11.3 fl (9.2-11.8); Monocytes Absolute Auto 0.37 K/mm3 (0.10-0.90); Monocytes Percent Auto 5.8 % (2.0-11.0); Neutrophils Absolute Auto 3.9 K/mm3 (1.7-7.2); Neutrophils Percent Auto 59.9 % (50.0-70.0); Platelet Count Result 310 K/mm3 (150-420); Red Blood Count 4.59 M/mm3 (4.20-5.40); Red Cell Distribution Width 15.8 % (11.6-14.4); White Blood Count 6.4 K/mm3 (4.8-10.8)
[2022-07-07 07:47] LABS: Basophils Absolute Auto 0.05 K/mm3 (0.00-0.10); Basophils Percent Auto 0.8 % (0.0-1.0); Eosinophils Absolute Auto 0.16 K/mm3 (0.02-0.50); Eosinophils Percent Auto 2.5 % (1.0-6.0); Hematocrit 44.2 % (35.0-42.0); Hemoglobin 13.7 g/dL (11.7-13.8); Immature Granulocyte Absolute 0.01 K/mm3 (0.00-0.00); Immature Granulocyte Percent A 0.2 % (0.0-0.0); Lymphocytes Absolute Auto 2.12 K/mm3 (1.10-4.50); Lymphocytes Percent Auto 33.7 % (18.0-42.0); Mean Corpuscular Hemoglobin 28.8 pg (27.0-31.0); Mean Corpuscular Volume 92.9 fL (78.0-102.0); Mean Platelet Volume 10.8 fl (9.2-11.8); Monocytes Absolute Auto 0.39 K/mm3 (0.10-0.90); Monocytes Percent Auto 6.2 % (2.0-11.0); Neutrophils Absolute Auto 3.6 K/mm3 (1.7-7.2); Neutrophils Percent Auto 56.6 % (50.0-70.0); Platelet Count Result 266 K/mm3 (150-420); Red Blood Count 4.76 M/mm3 (4.20-5.40); Red Cell Distribution Width 15.5 % (11.6-14.4); White Blood Count 6.3 K/mm3 (4.8-10.8)
[2022-08-04 07:29] LABS: Basophils Absolute Auto 0.06 K/mm3 (0.00-0.10); Basophils Percent Auto 0.8 % (0.0-1.0); Eosinophils Absolute Auto 0.14 K/mm3 (0.02-0.50); Eosinophils Percent Auto 1.9 % (1.0-6.0); Hematocrit 43.3 % (35.0-42.0); Hemoglobin 13.4 g/dL (11.7-13.8); Immature Granulocyte Absolute 0.02 K/mm3 (0.00-0.00); Immature Granulocyte Percent A 0.3 % (0.0-0.0); Lymphocytes Absolute Auto 1.96 K/mm3 (1.10-4.50); Lymphocytes Percent Auto 26.4 % (18.0-42.0); Mean Corpuscular HGB Conc 30.9 g/dL (32.0-36.0); Mean Corpuscular Hemoglobin 28.7 pg (27.0-31.0); Mean Corpuscular Volume 92.7 fL (78.0-102.0); Mean Platelet Volume 10.7 fl (9.2-11.8); Monocytes Absolute Auto 0.36 K/mm3 (0.10-0.90); Monocytes Percent Auto 4.8 % (2.0-11.0); Neutrophils Absolute Auto 4.9 K/mm3 (1.7-7.2); Neutrophils Percent Auto 65.8 % (50.0-70.0); Platelet Count Result 301 K/mm3 (150-420); Red Blood Count 4.67 M/mm3 (4.20-5.40); Red Cell Distribution Width 15.9 % (11.6-14.4); White Blood Count 7.4 K/mm3 (4.8-10.8)
[2022-09-02 07:08] LABS: Basophils Absolute Auto 0.07 K/mm3 (0.00-0.10); Eosinophils Absolute Auto 0.18 K/mm3 (0.02-0.50); Eosinophils Percent Auto 2.7 % (1.0-6.0); Hematocrit 44.7 % (35.0-42.0); Hemoglobin 13.8 g/dL (11.7-13.8); Immature Granulocyte Absolute 0.01 K/mm3 (0.00-0.00); Immature Granulocyte Percent A 0.1 % (0.0-0.0); Lymphocytes Absolute Auto 2.33 K/mm3 (1.10-4.50); Lymphocytes Percent Auto 34.7 % (18.0-42.0); Mean Corpuscular HGB Conc 30.9 g/dL (32.0-36.0); Mean Corpuscular Hemoglobin 28.5 pg (27.0-31.0); Mean Corpuscular Volume 92.4 fL (78.0-102.0); Mean Platelet Volume 10.2 fl (9.2-11.8); Neutrophils Absolute Auto 3.7 K/mm3 (1.7-7.2); Neutrophils Percent Auto 55.5 % (50.0-70.0); Platelet Count Result 312 K/mm3 (150-420); Red Blood Count 4.84 M/mm3 (4.20-5.40); Red Cell Distribution Width 15.4 % (11.6-14.4); White Blood Count 6.7 K/mm3 (4.8-10.8)
== END 2022-09-07 23:59 | disposition home or self-care (01) ==
LOC: CHSLAB 06:56
PROVIDERS: PCP Family Medicine
DX: F25.9 Schizoaffective disorder, unspecified (principal); F41.9 Anxiety disorder, unspecified; Z79.899 Other long term (current) drug therapy
CPT/HCPCS: 36415; 85025

== ENCOUNTER 2022-11-24 07:10 | Outpatient (CLI) | payer MEDICARE, SELFPAY ==
[2022-11-24 07:28] LABS: Hematocrit 44.6 % (35.0-42.0); Mean Corpuscular HGB Conc 31.4 g/dL (32.0-36.0); Mean Corpuscular Hemoglobin 28.5 pg (27.0-31.0); Mean Corpuscular Volume 90.8 fL (78.0-102.0); Mean Platelet Volume 10.5 fl (9.2-11.8); Platelet Count Result 346 K/mm3 (150-420); Red Blood Count 4.91 M/mm3 (4.20-5.40); Red Cell Distribution Width 15.3 % (11.6-14.4); White Blood Count 9.5 K/mm3 (4.8-10.8)
[2022-11-24 07:55] LABS: Alanine Aminotransferase 32 U/L (14-59); Albumin Level 3.4 g/dL (3.4-5.0); Alkaline Phosphatase 105 U/L (46-116); Anion Gap 11 mmol/L (8-16); Aspartate Amino Transferase 13 U/L (15-37); Bilirubin,Total 0.3 mg/dL (0.00-1.00); Blood Urea Nitrogen 18 mg/dL (7-18); Calcium 9.5 mg/dL (8.5-10.1); Carbon Dioxide 29 mmol/L (21-32); Chloride 103 mmol/L (98-108); Cholesterol 266 mg/dL (0-200); Estimated Glomerular Filt Rate 60; Glucose 153 mg/dL (70-99); HDL Direct 81 mg/dL (40-60); LDL Cholesterol Calculated 167 mg/dL (<130); Osmolality Calculated 300 mOsm/kg (285-295); Potassium 4.5 mmol/L (3.5-5.1); Sodium 143 mmol/L (136-145); Total Protein 7.4 g/dL (6.4-8.2); Triglycerides 91 mg/dL (0-150)
== END 2022-11-24 07:11 | disposition home or self-care (01) ==
PROVIDERS: PCP Family Medicine; Visit Provider Family Medicine
DX: E11.9 Type 2 diabetes mellitus without complications (principal); M85.80 Other specified disorders of bone density and structure, unspecified site
CPT/HCPCS: 36415; 80053; 80061; 83036; 85027

== ENCOUNTER 2022-12-22 08:18 | Outpatient (RCR) | payer MEDICARE, SELFPAY ==
[2022-09-29 08:51] LABS: Basophils Absolute Auto 0.06 K/mm3 (0.00-0.10); Basophils Percent Auto 0.6 % (0.0-1.0); Eosinophils Absolute Auto 0.14 K/mm3 (0.02-0.50); Eosinophils Percent Auto 1.5 % (1.0-6.0); Hematocrit 43.7 % (35.0-42.0); Hemoglobin 13.8 g/dL (11.7-13.8); Immature Granulocyte Absolute 0.03 K/mm3 (0.00-0.00); Immature Granulocyte Percent A 0.3 % (0.0-0.0); Mean Corpuscular HGB Conc 31.6 g/dL (32.0-36.0); Mean Corpuscular Volume 91.8 fL (78.0-102.0); Mean Platelet Volume 10.3 fl (9.2-11.8); Monocytes Absolute Auto 0.38 K/mm3 (0.10-0.90); Neutrophils Absolute Auto 7.2 K/mm3 (1.7-7.2); Neutrophils Percent Auto 76.6 % (50.0-70.0); Platelet Count Result 293 K/mm3 (150-420); Red Blood Count 4.76 M/mm3 (4.20-5.40); Red Cell Distribution Width 15.9 % (11.6-14.4); White Blood Count 9.4 K/mm3 (4.8-10.8)
[2022-10-27 07:30] LABS: Basophils Absolute Auto 0.06 K/mm3 (0.00-0.10); Basophils Percent Auto 0.8 % (0.0-1.0); Eosinophils Absolute Auto 0.17 K/mm3 (0.02-0.50); Eosinophils Percent Auto 2.1 % (1.0-6.0); Hematocrit 42.2 % (35.0-42.0); Hemoglobin 13.2 g/dL (11.7-13.8); Immature Granulocyte Absolute 0.03 K/mm3 (0.00-0.00); Immature Granulocyte Percent A 0.4 % (0.0-0.0); Lymphocytes Absolute Auto 2.21 K/mm3 (1.10-4.50); Lymphocytes Percent Auto 27.9 % (18.0-42.0); Mean Corpuscular HGB Conc 31.3 g/dL (32.0-36.0); Mean Corpuscular Hemoglobin 28.7 pg (27.0-31.0); Mean Corpuscular Volume 91.7 fL (78.0-102.0); Mean Platelet Volume 10.1 fl (9.2-11.8); Monocytes Absolute Auto 0.41 K/mm3 (0.10-0.90); Monocytes Percent Auto 5.2 % (2.0-11.0); Neutrophils Percent Auto 63.6 % (50.0-70.0); Platelet Count Result 318 K/mm3 (150-420); Red Cell Distribution Width 15.9 % (11.6-14.4); White Blood Count 7.9 K/mm3 (4.8-10.8)
[2022-12-22 08:27] LABS: Basophils Absolute Auto 0.05 K/mm3 (0.00-0.10); Basophils Percent Auto 0.6 % (0.0-1.0); Eosinophils Absolute Auto 0.14 K/mm3 (0.02-0.50); Eosinophils Percent Auto 1.6 % (1.0-6.0); Hematocrit 43.6 % (35.0-42.0); Hemoglobin 13.4 g/dL (11.7-13.8); Immature Granulocyte Absolute 0.04 K/mm3 (0.00-0.00); Immature Granulocyte Percent A 0.4 % (0.0-0.0); Lymphocytes Absolute Auto 1.57 K/mm3 (1.10-4.50); Lymphocytes Percent Auto 17.6 % (18.0-42.0); Mean Corpuscular HGB Conc 30.7 g/dL (32.0-36.0); Mean Corpuscular Hemoglobin 28.6 pg (27.0-31.0); Mean Corpuscular Volume 93.2 fL (78.0-102.0); Mean Platelet Volume 10.3 fl (9.2-11.8); Monocytes Absolute Auto 0.41 K/mm3 (0.10-0.90); Monocytes Percent Auto 4.6 % (2.0-11.0); Neutrophils Absolute Auto 6.7 K/mm3 (1.7-7.2); Neutrophils Percent Auto 75.2 % (50.0-70.0); Platelet Count Result 311 K/mm3 (150-420); Red Blood Count 4.68 M/mm3 (4.20-5.40); Red Cell Distribution Width 15.3 % (11.6-14.4); White Blood Count 8.9 K/mm3 (4.8-10.8)
== END 2022-12-28 23:59 | disposition home or self-care (01) ==
LOC: CHSLAB 08:18
PROVIDERS: PCP Family Medicine
DX: F25.9 Schizoaffective disorder, unspecified (principal); F41.9 Anxiety disorder, unspecified; Z79.899 Other long term (current) drug therapy
CPT/HCPCS: 36415; 85025

== ENCOUNTER 2023-04-12 08:58 | Outpatient (RCR) | payer MEDICARE, SELFPAY ==
[2023-01-20 14:07] LABS: Basophils Absolute Auto 0.08 K/mm3 (0.00-0.10); Basophils Percent Auto 0.9 % (0.0-1.0); Eosinophils Absolute Auto 0.14 K/mm3 (0.02-0.50); Eosinophils Percent Auto 1.6 % (1.0-6.0); Hematocrit 45.4 % (35.0-42.0); Hemoglobin 13.6 g/dL (11.7-13.8); Immature Granulocyte Absolute 0.03 K/mm3 (0.00-0.00); Immature Granulocyte Percent A 0.3 % (0.0-0.0); Lymphocytes Absolute Auto 1.92 K/mm3 (1.10-4.50); Lymphocytes Percent Auto 22.3 % (18.0-42.0); Mean Corpuscular Hemoglobin 28.3 pg (27.0-31.0); Mean Corpuscular Volume 94.4 fL (78.0-102.0); Mean Platelet Volume 10.7 fl (9.2-11.8); Monocytes Absolute Auto 0.48 K/mm3 (0.10-0.90); Monocytes Percent Auto 5.6 % (2.0-11.0); Neutrophils Percent Auto 69.3 % (50.0-70.0); Platelet Count Result 331 K/mm3 (150-420); Red Blood Count 4.81 M/mm3 (4.20-5.40); White Blood Count 8.6 K/mm3 (4.8-10.8)
[2023-02-16 07:31] LABS: Basophils Absolute Auto 0.06 K/mm3 (0.00-0.10); Basophils Percent Auto 0.8 % (0.0-1.0); Eosinophils Absolute Auto 0.17 K/mm3 (0.02-0.50); Eosinophils Percent Auto 2.3 % (1.0-6.0); Hematocrit 43.1 % (35.0-42.0); Hemoglobin 13.3 g/dL (11.7-13.8); Immature Granulocyte Absolute 0.02 K/mm3 (0.00-0.00); Immature Granulocyte Percent A 0.3 % (0.0-0.0); Lymphocytes Percent Auto 24.6 % (18.0-42.0); Mean Corpuscular HGB Conc 30.9 g/dL (32.0-36.0); Mean Corpuscular Volume 93.9 fL (78.0-102.0); Mean Platelet Volume 10.2 fl (9.2-11.8); Monocytes Absolute Auto 0.41 K/mm3 (0.10-0.90); Monocytes Percent Auto 5.6 % (2.0-11.0); Neutrophils Absolute Auto 4.9 K/mm3 (1.7-7.2); Neutrophils Percent Auto 66.4 % (50.0-70.0); Platelet Count Result 318 K/mm3 (150-420); Red Blood Count 4.59 M/mm3 (4.20-5.40); Red Cell Distribution Width 15.4 % (11.6-14.4); White Blood Count 7.3 K/mm3 (4.8-10.8)
[2023-03-16 07:49] LABS: Basophils Absolute Auto 0.08 K/mm3 (0.00-0.10); Basophils Percent Auto 0.8 % (0.0-1.0); Eosinophils Absolute Auto 0.18 K/mm3 (0.02-0.50); Eosinophils Percent Auto 1.9 % (1.0-6.0); Hematocrit 44.7 % (35.0-42.0); Hemoglobin 13.9 g/dL (11.7-13.8); Immature Granulocyte Absolute 0.04 K/mm3 (0.00-0.00); Immature Granulocyte Percent A 0.4 % (0.0-0.0); Lymphocytes Absolute Auto 1.97 K/mm3 (1.10-4.50); Lymphocytes Percent Auto 20.4 % (18.0-42.0); Mean Corpuscular HGB Conc 31.1 g/dL (32.0-36.0); Mean Corpuscular Hemoglobin 28.9 pg (27.0-31.0); Mean Corpuscular Volume 92.9 fL (78.0-102.0); Mean Platelet Volume 10.5 fl (9.2-11.8); Monocytes Absolute Auto 0.51 K/mm3 (0.10-0.90); Monocytes Percent Auto 5.3 % (2.0-11.0); Neutrophils Absolute Auto 6.9 K/mm3 (1.7-7.2); Neutrophils Percent Auto 71.2 % (50.0-70.0); Platelet Count Result 322 K/mm3 (150-420); Red Blood Count 4.81 M/mm3 (4.20-5.40); Red Cell Distribution Width 15.6 % (11.6-14.4); White Blood Count 9.7 K/mm3 (4.8-10.8)
[2023-04-12 09:10] LABS: Basophils Absolute Auto 0.04 K/mm3 (0.00-0.10); Basophils Percent Auto 0.5 % (0.0-1.0); Eosinophils Absolute Auto 0.15 K/mm3 (0.02-0.50); Hematocrit 42.7 % (35.0-42.0); Hemoglobin 13.3 g/dL (11.7-13.8); Immature Granulocyte Absolute 0.03 K/mm3 (0.00-0.00); Immature Granulocyte Percent A 0.4 % (0.0-0.0); Lymphocytes Absolute Auto 1.68 K/mm3 (1.10-4.50); Mean Corpuscular HGB Conc 31.1 g/dL (32.0-36.0); Mean Corpuscular Volume 93.2 fL (78.0-102.0); Mean Platelet Volume 10.5 fl (9.2-11.8); Monocytes Absolute Auto 0.42 K/mm3 (0.10-0.90); Monocytes Percent Auto 5.5 % (2.0-11.0); Neutrophils Absolute Auto 5.3 K/mm3 (1.7-7.2); Neutrophils Percent Auto 69.6 % (50.0-70.0); Platelet Count Result 283 K/mm3 (150-420); Red Blood Count 4.58 M/mm3 (4.20-5.40); Red Cell Distribution Width 15.8 % (11.6-14.4); White Blood Count 7.7 K/mm3 (4.8-10.8)
== END 2023-04-19 23:59 | disposition home or self-care (01) ==
LOC: CHSLAB 08:58
PROVIDERS: PCP Family Medicine
DX: F25.9 Schizoaffective disorder, unspecified (principal); F41.9 Anxiety disorder, unspecified; Z79.899 Other long term (current) drug therapy
CPT/HCPCS: 36415; 85025

== ENCOUNTER 2023-09-03 08:18 | Outpatient (CLI) | payer MEDICARE, SELFPAY ==
--- NOTE | ~2023-09-03 | XR_ITS ---
XR knee RT 3V 09/03/2023 08:57 Indication: Chronic knee pain Procedure: 3 views right knee Comparison: No prior studies for comparison. Findings: Mild osteoarthritis of the right knee. There is heterotopic ossification involving the ante rior medial soft tissues. No foreign bodies. No joint effusion. Impression: 1: Mild osteoarthritis of the right knee. Reviewed, dictated and finalized at location A. PREPARATION SUPERVISOR Impression: 1: Mild osteoarthritis of the right knee.
--- NOTE | ~2023-09-03 | XR_ITS ---
XR knee LT 3V 09/03/2023 08:56 Indication: Chronic knee pain Procedure: 3 views left knee Comparison: 08/02/2018 Findings: There is severe tricompartment osteoarthritis of the left knee. Degenerative changes most a dvanced in the medial compartment. No acute fracture or traumatic malalignment. No significant joint effusion. Impression: 1: Severe osteoarthritis of the left knee. Reviewed, dictated and finalized at location A. ICE WORKER HELPER Impression: 1: Severe osteoarthritis of the left knee.
== END 2023-09-03 08:19 | disposition home or self-care (01) ==
PROVIDERS: PCP Family Medicine; Visit Provider Family Medicine
DX: M25.562 Pain in left knee (principal); M25.561 Pain in right knee; M17.0 Bilateral primary osteoarthritis of knee
CPT/HCPCS: 73562

== ENCOUNTER 2024-01-29 07:21 | Emergency (ER) | payer MEDICARE, SELFPAY ==
[2024-01-29] VITALS (22 sets, daily range): BP systolic 115–187; BP diastolic 65–129; PULSE 84–97; RESP 20; TEMP 36.2; O2SAT 83–100
--- NOTE | ~2024-01-29 | XR_ITS ---
EXAMINATION: XR chest 1V portable DATE: 01/29/2024 08:43 INDICATION: Cough and shortness of breath TECHNIQUE: frontal view of the chest was obtained. COMPARISON: Chest radiograph dated 10/03/2019 FINDINGS: Calcified nodule in the right upper lobe along with calcified right hilar and mediastinal lymph nodes consistent with old granulomatous disease. No other airspace opacities, pulmonary edema, pleural eff usion or pneumothorax. The cardiomediastinal silhouette is normal. IMPRESSION: 1. No acute cardiopulmonary disease. Reviewed, dictated and finalized at location A.
--- NOTE | ~2024-01-29 | XR_ITS ---
EXAMINATION: XR hip LT 2V w AP pelvis DATE: 01/29/2024 08:39 INDICATION: Left hip pain post fall TECHNIQUE: Anteroposterior view of the pelvis and anteroposterior and frog leg lateral views of the l eft hip were obtained. COMPARISON: 09/02/2017 FINDINGS: Alignment is normal. No fracture. Bilateral hip joint spaces are relatively preserved. Moderate lower lumbar spondylosis. IMPRESSION: 1. No acute osseous abnormality. Reviewed, dictated and finalized at location A.
--- NOTE | ~2024-01-29 | XR_ITS ---
EXAMINATION: XR knee LT 3V, XR knee RT 3V DATE: 01/29/2024 08:39 INDICATION: Bilateral knee pain post fall TECHNIQUE: 1. Anteroposterior, oblique and crosstable lateral views of the left knee were obtained. 2. Anteroposterior, oblique and crosstable lateral views of the right knee were obtained. COMPARISON: Left knee radiographs dated 09/03/2023 FINDINGS: Alignment is normal at both knees. No fracture. Again seen is severe joint space narrowing and remod eling of the articular cortices at the medial compartment of the left knee. There are small marginal osteophytes at the lateral compartment left knee and at the bilateral patellofemoral compartments. No joint effusion/layering lipohemarthrosis at either knee. A few small heterotopic ossicles in the victoria bcutaneous fat medial to both knees. IMPRESSION: 1. Osteoarthritis at the bilateral knees, severe at the medial compartment of the left knee and other rodriguez mild. No acute osseous abnormality. Reviewed, dictated and finalized at location A. IMPRESSION: 1. Osteoarthritis at the bilateral knees, severe at the medial compartment of t he left knee and otherwise mild. No acute osseous abnormality.
--- NOTE | 2024-01-29 08:11 | ED.FALL ---
HPI - Fall General Chief Complaint: Fall Stated Complaint: fall injury Time Seen by Provider: 01/29/24 07:25 History of Present Illness HPI Narrative: Patient is a 68 year old female with history of GERD, lymphedema, GERD, schizo-affective disorder, COPD here after a fall. Patient notes that this morning she was walking with her walker and her feet got stuck and she fell forward landing on her knees. She denies head injury or loss of consciousness. Staff was unable to get her up due to her body habitus so they had EMS bring her into the ED for evaluation. She is currently complaining of bilateral knee pain, worse on the right than the left as well as left hip pain. She does not use blood thinners. She did not take anything for pain prior to arrival. Of note, she is complaining of a cough and shortness of breath, she recently saw her PCP for this and he prescribed her antibiotics and steroids. Related Data Home Medications Medication Instructions Recorded Confirmed bupropion HCl 150 mg 24 hr tablet, 150 mg PO QAM 09/06/19 01/26/24 extended release clozapine 100 mg tablet 50 mg PO QAM 09/06/19 01/26/24 diazepam 2 mg tablet 2 mg PO DAILY PRN 12/11/19 01/26/24 clozapine 100 mg tablet 150 mg PO QPM 11/17/20 01/26/24 diclofenac sodium 1 % topical gel 4 g topical QID PRN 11/17/20 01/26/24 multivitamin 1 tablet PO DAILY 11/23/22 01/26/24 gabapentin 600 mg tablet 600 mg PO DAILY 03/08/23 01/26/24 acetaminophen 500 mg capsule 500 mg PO Q6H PRN 01/26/24 01/26/24 bisacodyl 5 mg tablet,delayed 5 mg PO ONCE 01/26/24 01/26/24 release montelukast 10 mg tablet 10 mg PO DAILY 01/26/24 01/26/24 Allergies Allergy/AdvReac Type Severity Reaction Status Date / Time haloperidol [Haldol] Allergy Intermediate Unknown Verified 01/29/24 08:06 lithium Allergy Intermediate Unknown Verified 01/29/24 08:06 Review of Systems Review of Systems: All systems reviewed & are unremarkable except as noted in HPI and below PMFSH Past Medical History Medical History (Updated 01/29/24 @ 09:39 by Aracelis Del Real MD) Allergic rhinitis GERD (gastroesophageal reflux disease) Lymphedema Overweight Schizo-affective schizophrenia Seizure disorder Stasis dermatitis Wears dentures Surgical History Surgical History History of cholecystectomy History of tubal ligation 1983 Family History Family History Father , Age 59 Lung cancer Mother , Age 77 Heart disease Social History Social History Smoking status: Current every day smoker Tobacco type: cigarettes Additional smoking assessment comments: 40 pack-year history Living arrangements: long-term Additional living arrangements comments: [facility] in [place]. Single. No Children. Occupation/Education: unemployed Additional occupation/education comments: Disabled due to Schizoaffective Disorder Exam Narrative: GENERAL: Well-appearing, well-nourished, and in no acute distress. HEAD: Normocephalic, atraumatic. EYES: PERRLA and EOMI. ENT: Nares clear. Mucous membranes moist. NECK: Supple. CHEST: Bilateral wheeze, coughing during exam. No respiratory distress. No chest wall tenderness. HEART: Regular rate and rhythm. Normal peripheral pulses. ABDOMEN: Soft, nontender, nondistended. EXTREMITIES: Normal range of motion. Bilateral lower extremity edema present. tenderness to anterior knee bilaterally with some developing faint ecchymosis present over the right knee. She is able to flex and extend bilateral knees with normal range of motion. She additionally has tenderness over the left lateral hip. Strong DP pulses appreciated. Normal sensation of the distal lower extremities. SKIN: Warm, dry. Chronic venous stasis skin changes over bilateral distal lower extremities. MAXX
[2024-01-29] MEDS: IPRATROPIUM 0.5 MG/ALBUTEROL SULFATE 2.5 MG AMPUL.NEB 3 ML INHALATION (08:40)
[2024-01-29] MEDS: ACETAMINOPHEN 500 MG TABLET 1000 MG PO (08:41)
[2024-01-29 10:00] LABS: SARS-CoV-2 RNA PCR Negative (Negative)
[2024-01-29 10:02] LABS: Influenza A QL RT-PCR Negative (Negative); Influenza B QL RT-PCR Negative (Negative); RSV RNA, RT-PCR Negative (Negative)
== END 2024-01-29 10:50 ==
PROVIDERS: Emergency Provider Student in an Organized Health Care Education/Training Program; PCP Family Medicine
DX: S80.02XA Contusion of left knee, initial encounter (principal); S80.01XA Contusion of right knee, initial encounter; F17.210 Nicotine dependence, cigarettes, uncomplicated; Z79.899 Other long term (current) drug therapy; Z20.822 Contact with and (suspected) exposure to COVID-19; W18.39XA Other fall on same level, initial encounter
CPT/HCPCS: 71045; 73502; 73562; 87637; 99284

== ENCOUNTER 2024-02-06 08:03 | Outpatient (RCR) | payer MEDICARE, SELFPAY ==
[2024-02-06 08:26] LABS: Hematocrit 42.9 % (35.0-42.0); Hemoglobin 13.3 g/dL (11.7-13.8); Mean Corpuscular Hemoglobin 28.5 pg (27.0-31.0); Mean Corpuscular Volume 91.9 fL (78.0-102.0); Mean Platelet Volume 10.4 fl (9.2-11.8); Platelet Count Result 337 K/mm3 (150-420); Red Blood Count 4.67 M/mm3 (4.20-5.40); Red Cell Distribution Width 15.5 % (11.6-14.4); White Blood Count 7.7 K/mm3 (4.8-10.8)
== END 2024-05-06 23:59 | disposition home or self-care (01) ==
LOC: CHSLAB 08:03
PROVIDERS: PCP Family Medicine
DX: Z51.81 Encounter for therapeutic drug level monitoring (principal); Z79.899 Other long term (current) drug therapy
CPT/HCPCS: 36415; 85027